=== PATIENT | male | born 1970 | race Caucasian/White ===

== ENCOUNTER 2023-11-30 10:00 | Day surgery (SDC) | payer MEDICAID, SELFPAY ==
--- NOTE | 2023-11-30 13:03 | EKG12_ITS ---
Test Reason : PREOP Blood Pressure : / mmHG Vent. Rate : 072 BPM Atrial Rate : 072 BPM P-R Int : 140 ms QRS Dur : 100 ms QT Int : 404 ms P-R-T Axes : 015 056 048 degrees QTc Int : 442 ms Normal sinus rhythm Normal ECG Confirmed by Nahun Maloney ([id number]), online editor ROXANA GOODWIN ([id number]) on 12/01/2023 8:53:40 AM Referred By: Navdeep Rubin Confirmed By:Nahun Maloney
[2023-11-30 13:46] LABS: Absolute Lymphocyte Count 1.25 X10^3/uL (0.83-4.51); Basophil# 0.04 X10^3/uL; Basophil% 0.5 % (0-1); Eosinophil# 0.02 X10^3/uL; Eosinophils% 0.2 % (0-5); Hematocrit 43.3 % (40-54); Hemoglobin 15.4 g/dL (13.0-16.5); Lymphocyte # 1.25 X10^3/ul (0.83-4.51); Lymphocyte % 15.5 % (19-41); Mean Corp Hgb Conc 35.6 g/dL (32-36); Mean Corpuscular Volume 89.8 fL (80-94); Mean Platelet Vol. 9.2 fl (6.2-12.0); Monocyte# 0.68 X10^3/uL; Monocyte% 8.4 % (0-10); NRBC Flagged by Analyzer 0 % (0-5); Neutrophil # 6.01 X10^3/uL (2.7-7.7); Neutrophil % 74.8 % (47-70); Platelet Count 267 K/mm3 (150-450); RBC Distribution Width CV 12.3 % (11.6-14.6); RBC Distribution Width SD 40.7 fl (35.1-43.9); Red Blood Count 4.82 M/mm3 (4.6-6.2); White Blood Count 8.1 K/mm3 (4.4-11.0)
[2023-11-30 14:12] LABS: Anion Gap 7 (5-15); BUN 7 mg/dL (7-18); Calcium,Total 8.9 mg/dL (8.5-10.1); Chloride 88 mmol/L (98-107); Creatinine, Serum 0.88 mg/dL (0.70-1.30); EST Glomerular Filtration Rate 96 mL/min (>60); Est Glom Filt Rate - Afr Amer 117 mL/min (>60); Glucose 108 mg/dL (74-106); Magnesium 2.5 mg/dL (1.6-2.6); Potassium 3.9 mmol/L (3.5-5.1); Sodium Level 124 mmol/L (136-145)
[2023-11-30 15:01] LABS: HIV - WCH Non-Reactive (Nonreactive); Hepatitis B Surface Antibody Reactive; Hepatitis C Antibody Non-Reactive (Nonreactive)
[2023-12-02 05:07] LABS: Hepatitis A AB, Total Negative (Negative)
== END 2023-11-30 23:59 | disposition home or self-care (01) ==
LOC: PAT 06-01 10:48
PROVIDERS: PCP Internal Medicine; Referring Provider Orthopaedic Surgery Orthopaedic Surgery of the Spine; Visit Provider Orthopaedic Surgery Orthopaedic Surgery of the Spine
DX: Z01.818 Encounter for other preprocedural examination (principal)
CPT/HCPCS: J3475 ×2; 36415; 80048; 83735; 85025; 86703; 86706; 86708; 86803; 87081; 93005

== ENCOUNTER 2024-01-24 16:21 | Observation (INO) | payer MEDICAID, SELFPAY ==
[2024-01-24] VITALS (16 sets, daily range): BP systolic 143–170; BP diastolic 98–116; PULSE 61–101; RESP 16; TEMP 36.1–37.2; O2SAT 93–100; BMI 25.4
[2024-01-24] MEDS: dexAMETHasone 10 MG/ML Vial 8 MG IV (12:00)
[2024-01-24] MEDS: Lactated Ringers 1,000 ML 15 ML IV (12:20)
[2024-01-24] MEDS: Acetaminophen 500 MG Tablet 1000 MG PO ×2 (12:22→20:26)
[2024-01-24] MEDS: Magnesium 1 GM over 15 mins IV (12:44)
[2024-01-24 12:48] LABS: Bedside Glucose 87 mg/dL (74-106)
--- NOTE | 2024-01-24 13:19 | PCM.PRE.AN2 ---
ASA Classification* ASA Classification ASA Classification: 3 Assessment & Plan Anesthesia* Anesthesia Assessment Anesthesia Assessment: Discussed sedation and/or anesthesia options, risks, benefits, and alternatives with patient/parents/legal guardian/POA. Questions invited. The patient/parents/legal guardian/POA seems to understand and agrees to proceed with anesthesia plan. Reviewed the physical assessment, medical history, allergy history and patient home medications list prior to surgery/procedure/anesthetic and documented any changes. Performed airway and anesthesia risk assessments. Anesthesia Type Anesthesia Type: General (Considering poor neck extension, would consider GlideScope intubation) History Source History Obtained from:: Patient and Chart Anesthesia Focused Assessment* Temperature: 99 F Pulse Rate: 88 Blood Pressure: 155/98 Respiratory Rate: 16 Pulse Ox: 99 Oxygen Delivery Method: Room Air Airway Assessment Mouth opens: >3 cm Mallampati Score: III Teeth Condition: Intact Neck Range of motion (ROM): Limited ROM (Decreased extension.) Focused Labs Anesthesia Preop lab: CBC WBC 8.1 K/mm3 (4.4-11.0) 11/30/23 13:22 RBC 4.82 M/mm3 (4.6-6.2) 11/30/23 13:22 Hgb 15.4 g/dL (13.0-16.5) 11/30/23 13:22 Hct 43.3 % (40-54) 11/30/23 13:22 Plt Count 267 K/mm3 (150-450) 11/30/23 13:22 CHEMISTRY Potassium 3.9 mmol/L (3.5-5.1) 11/30/23 13:22 Sodium 124 mmol/L (136-145) L 11/30/23 13:22 Magnesium 2.5 mg/dL (1.6-2.6) 11/30/23 13:22 BUN 7 mg/dL (7-18) 11/30/23 13:22 Creatinine 0.88 mg/dL (0.70-1.30) 11/30/23 13:22 Glucose 108 mg/dL (74-106) H 11/30/23 13:22 POC Glucose 87 mg/dL (74-106) 01/24/24 11:58 COAG Lab additional comments: January 20, 2024. Repeat sodium was 133. 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 When Was Last Pacemaker Check QUESTION #4 FULL TEXT: You/Your Family Experience fever (hyperthermia) with Anesthesia Last Oral Intake Last Oral intake: Last Oral Intake NPO since 22:00 01/24/24 11:52 Meds taken in AM with sips of Yes 01/24/24 11:52 water? Meds patient instructed to take am of surgery Any additional information?: Yes NPO since: 10:00 Meds patient instructed to take am of surgery: Presurgical anterior taken at 10:00. PONV PONV - hydrographic surveyor: PONV - hydrographic surveyor Female No 01/06/24 12:16 HX of Motion Sickness No 01/06/24 12:16 HX of N/V After Surgery No 01/06/24 12:16 Non-Smoker Yes 01/06/24 12:16 Duration of Surgery greater No 01/06/24 12:16 than 60 minutes Number of Risk Factors 1 01/06/24 12:16 PONV Score Low Risk 01/06/24 12:16 Height & Weight Height & Weight: Anesthesia: Height & Weight Height 5 ft 11 in 01/24/24 11:52 Weight: 83 kg 01/24/24 11:52 Body Mass Index (BMI) 25.4 01/24/24 11:52 Respiratory Assessment Respiratory Assessment - hydrographic surveyor: Respiratory Tract Infection Hx - hydrographic surveyor Hx Respiratory Tract Infection No 01/06/24 12:16 STOP Sleep Apnea STOP Sleep Apnea - hydrographic surveyor: STOP Sleep Apnea - hydrographic surveyor Hx Hypertension Yes: CONTROLLED WITH MEDS 01/06/24 12:16 Hx Sleep Apnea Yes 01/06/24 12:16 CPAP Yes: DOESN'T WEAR, SENT 01/06/24 12:16 MACHINE BACK COULDNT TOLERATE BIPAP No 01/06/24 12:16 Do you snore loudly (louder than talking or can be heard Do you often feel tired/ fatigued/ sleepy during daytime? Has anyone observed you stop breathing during sleep? STOP Results Positive 01/06/24 12:16 QUESTION #5 FULL TEXT : Do you snore loudly (louder than talking or can be heard through closed doors)? 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 Specify any problems Hx of Preganancy in last 3 N/A 01/06/24 12:16 Months Nurse Filling Out Transfusion [email or web address] 01/06/24 12:16 & Questions: Date: 01/06/24 01/06/24 12:16 Time: 12:18 01/06/24 12:16 Patient unable to answer at this time (ie. confused, unrespo /Reproduction History /Reproductive History - hydrographic surveyor: /Reproductive Hx- hydrographic surveyor Hx Now Gestational Age (in weeks): EDC: Hx Hx Para Hx Section SAB Active Medications Active Medications: Current Medications Generic Name Dose Route Start Last Admin Trade Name Freq PRN Reason Stop Dose Admin Cefazolin Sodium 2 gm/ Sodium 110 mls @ 150 mls/hr 01/24/24 13:15 Chloride IV 01/24/24 13:58 PREOP ONE Lactated Ringer's 1,000 mls @ 15 mls/hr 01/24/24 11:15 01/24/24 12:20 IV 15 mls/hr .Q48H MICHAEL Administration Insulin Human Lispro 1 - 6 unit 01/24/24 13:15 Insulin Lispro 100 Unit/Ml Insuln.Pen SC 01/24/24 18:00 Q4H PRN PRN BG>/= 180, SEE PROTOCOL Protocol PFSH Medical History Wears glasses Alcohol use Injury of head and neck Gastric reflux Marijuana use Former smoker CPAP (continuous positive airway pressure) dependence Sleep apnea History of stress test Home Medications ?Medication ?Instructions ?Recorded ?Last Taken ?Type fluticasone propionate 50 1 spray intranasal DAILY 10/26/23 Unknown History mcg/actuation nasal spray,suspension hydrocodone 5 mg-acetaminophen 300 1 tab PO BID PRN pain 10/26/23 Unknown History mg tablet losartan 50 mg tablet 50 mg PO DAILY 10/26/23 01/24/24 History omeprazole 40 mg capsule,delayed 40 mg PO DAILY 10/26/23 Unknown History release furosemide 20 mg tablet 20 mg PO BID 01/06/24 Unknown History sildenafil 50 mg tablet 50 mg PO DAILY 01/06/24 Unknown History sodium chloride 1,000 mg soluble 1,000 mg PO BID 01/06/24 Unknown History tablet Allergy/AdvReac Type Severity Reaction Status Date / Time No Known Allergies Allergy Verified 01/24/24 11:51 Family History Other Cancer Heart disease Hypertension Surgical History History of hernia surgery Social History household members: significant other Smoking Status: Former smoker alcohol intake: current alcohol intake frequency: holidays/special occasions only substance use type: marijuana Review of Systems (Anesthesia) ROS Narrative System reviewed and no additional complaints, except as documented.
--- NOTE | 2024-01-24 13:21 | HP.PCM_ITS ---
History and Physical Date of Admission: 01/24/24 MR#: [id number] Acct: [id number] Name: RYAN PATIÑO Rep #: [id number] : 1970 Provider: Dr. Navdeep Rubin MD Age/Sex: 53/M Location: [facility] [place] Status: Signed Intake Vital Signs 10/25/2412:54 Height 5 ft 11 in Intake Visit Reasons: cervical spine Is patient in pain?: Yes Allergies No Known Allergies Allergy (Unverified 12/09/23 13:38) Medications ?Medication ?Instructions ?Recorded ?Confirmed ?Type fluticasone propionate 50 1 spray intranasal DAILY 10/26/23 12/09/23 History mcg/actuation nasal spray,suspension hydrochlorothiazide 50 mg tablet 50 mg PO DAILY 10/26/23 12/09/23 History hydrocodone 5 mg-acetaminophen 300 1 tab PO BID PRN pain 10/26/23 12/09/23 History mg tablet losartan 50 mg tablet 50 mg PO DAILY 10/26/23 12/09/23 History omeprazole 40 mg capsule,delayed 40 mg PO DAILY 10/26/23 12/09/23 History release PFSH Medical History Wears glasses Alcohol use Injury of head and neck Gastric reflux Marijuana use Former smoker CPAP (continuous positive airway pressure) dependence Sleep apnea History of stress test Surgical History History of hernia surgery Family History Other Cancer Heart disease Hypertension Social History household members: significant other Smoking Status: Former smoker alcohol intake: current alcohol intake frequency: holidays/special occasions only substance use type: marijuana HPI cervical spine Details: This documentation accurately reflects the service provided and the decisions made by me, Dr. Navdeep Rubin MD 12/09/23 [id number]. Part of today?s visit was documented by [ ], acting as scribe. RYAN PATIÑO is a 53 year old M here today for preop, cervical spine, dos 12/14/23. Patient denies any changes. Patient states that he got his blood work from [facility] and his sodium is low so he has to try and get that elevated and goes for repeat blood work on Wednesday. Ryan continues to have neck pain radiating to right worse than left upper extremities with dexterity and balance issues. Following his his previous history: 10/29/23: RYAN PATIÑO is a 53 year old M here today for evaluation of cervical spine pain as a referral from Dr. Leonardo. He reports neck pain for years. He reports stiffness in his neck and feels as though something is pushing his neck forward. The pain radiates down his neck into his right shoulder blade down into right arm. He does report numbness into the right arm. Ryan has been referred by Dr. Leonardo. He has had neck pain for many years. Over the last 3 to 4 months this is significantly worsened such that now the pain is radiating signif icantly over the right upper extremity and has caused weakness in the arm and hand on the right side. Patient is right-hand dominant. He notices difficulty with dexterity and dropping objects in his right hand. He denies any left-sided symptoms. He has noticed some early balance difficulties but denies any falls. He also notes axial low back pain without radicular symptoms. Ortho Exam General General: Yes no acute distress Neurologic: Yes alert and Yes oriented x3 Spine SPINE TESTING CERVICAL THORACIC LUMBAR Musculoskeletal Strength 0=absent - 5=normal Details: Examination of the neck shows midline and right paraspinal tenderness. Neurologic evaluation of upper extremity shows 4+ x 5 power in right upper extremity, 5/5 in the left, shows normal sensations in all dermatomes. Felicitas's negative. Romberg's is positive. Tandem gait shows imbalance. Bilateral knee and right ankle reflexes brisk. No ankle clonus. Coding Level of Care Code Off vis,est,level 4 Diagnoses Cervical myelopathy with cervical radiculopathy G95.9; M54.12 Time Spent (min) 35 Comment Modifier 57 Assessment and Plan Assessment and Plan (1) Cervical myelopathy with cervical radiculopathy: Status: Acute Plan I again reviewed his x-rays and MRI. These show C5-7 disc degeneration with disc height loss with severe osteophytosis causing severe foraminal stenosis. There is mild central stenosis with cord indentation with heterogeneous signal changes with severe foraminal stenosis. I explained to him the imaging findings in detail. Clinically, patient has shown signs of early myelopathy along with severe right upper extremity radiculopathy with weakness. I explained to him the natural history of cervical myelopathy as well as that of radiculopathy. While radiculopathy may improve with nonsurgical treatment, myelopathy typically has a natural history of progression. Patient has shown significant worsening of his hand dexterity and balance issues over the last few months. I recommended surgery in the form of C5-7 ACDF. All risk benefits and alternatives were discussed in detail. The risks include but are not limited to infection, bleeding, hematoma formation, need for further surgery, dysphagia, dysphonia, Sheryl syndrome, recurrent laryngeal nerve injury, pseudoarthrosis, hardware failure, adjacent segment degeneration, DVT, pulmonary embolism, pneumonia, atelectasis, cardiopulmonary event. Patient understands and agrees to proceed with surgery. Consent was signed.
--- NOTE | 2024-01-24 13:40 | RAD_ITS ---
INDICATION: ANTERIOR FUSION C5-6, C6-7 EXAMINATION/TECHNIQUE: X-RAY - XR Spine Cervical 4 or 5 Views COMPARISON: Prior study dated: 10/29/2023 FINDINGS: Images of the cervical spine were obtained intraoperatively on a C-arm for anterior fusion of C5, C6 and C7 with anterior plate and screws. Images were obtained for documentation. Number of fluoroscopic images 7. Fluoroscopy time: 16.1 seconds. Radiation dose: 3.41 mGy. RAD/Cerv Spine 4 or 5 Views IMPRESSION: Intraoperative exam as described above.. Electronically Signed: Jasmeet Baldwin MD at 9:38 EDT ,
[2024-01-24] MEDS: Cefazolin 2 GM in 0.9% Normal Saline (100mL Bag) 100 ML IV ×2 (14:00→22:37)
--- NOTE | 2024-01-24 16:28 | OP.PCM_ITS ---
Report of Operation Date of Procedure: 01/24/24 Description of Surgical Findings:: Preoperative diagnosis: C5-7 disc degeneration with stenosis, radiculomyelopathy Postoperative diagnosis: Same Name of procedure: C5-7 anterior cervical discectomy and fusion with plate instrumentation - Anterior cervical fusion C5-6, CPT code 42266 - Anterior plate instrumentation C5-7, CPT code 86396/59 - Anterior cervical fusion C6-7, CPT code 88412/51 -C5-6 structural allograft bone with DBX, CPT code 41712 -C6-7 structural allograft bone with DBX, CPT code 85660 Attending surgeon: Navdeep Rubin M.D. Anesthesia: Gen. endotracheal Estimated blood loss: 25 mL Complications: None Instrumentation used: Medtronic [place] Elite plate, LASR corticocancellous block Indications: The patient is a pleasant 53-year-old gentleman who presented with neck pain, right worse than left upper extremity radiation, difficulty with dexterity and balance. MRI showed C5-7 disc degeneration with stenosis with cord indentation without any cord signal changes. In order to halt the progression of myelopathy, the patient requested surgical treatment. All risks and benefits of the procedure were explained to the patient. The risks include but are not limited to infection, bleeding, injury to nerves and vessels, vertebral artery injury, spinal cord injury, paralysis, vocal cord paralysis, injury to esophagus, pseudoarthrosis, need for further procedures, adjacent segment degeneration. Procedure: The patient was identified in the preoperative suite using unique patient identifiers. Skin was marked consent was taken and all questions were answered. The patient was then brought back to the operative room and a timeout was performed. General endotracheal anesthesia was given. Intraoperative neuro monitoring leads were applied. The patient was carefully positioned supine on a regular OR table. A lateral view with a C-arm was done to identify the level and to define the incision. The anterior neck was then prepped and draped in the usual fashion. A final timeout was then performed. A transverse skin incision was taken to the left of midline. Subcutaneous tissue was then divided with Bovie. Platysma was identified and cut along the incision with scissors. The fascial interval between the sternocleidomastoid and the larynx was developed. Omohyoid was identified and retracted. The esophagus with the larynx was retracted medially to reach the prevertebral fascia. Marker x-ray was performed with bent spinal needle and disc space and levels were confirmed. Longus coli muscle was elevated on both sides at and above and below C5-7 discs. Self-retaining retractors were then placed. A long handle knife was then used to perform annulotomy at C5-6. Disc fragments were removed with the pituitary. [place] pins were placed in C5 and C6 for disc distraction. Curettes and bur was utilized to remove cartilage from the endplates. Discectomy was performed laterally up to the uncovertebral joints. Posterior osteophytes were thinned down with the bur and adequate decompression in the central and foraminal areas were performed and PLL was thinned out. Once the disc space was prepared, trials of various sizes were utilized. Thorough irrigation was given. 6 mm LASR cortical cancellous allograft bone large footprint was then fashioned in such a way that concavities were burred out inferiorly and superiorly and half cc of DBX (demineralized bone matrix) was squeezed into the cancellous portion. The graft was then inserted into the C5-6 disc space. The retractors were then repositioned and the procedure was repeated for C6-7 discs with complete discectomy. Graft size was 6 mm at with large footprint at C6-7. The grafts were found to be in good apposition with good pullout strength. A 40 mm Medtronic [place] Elite plate was then fixed to C5-7 with 16 mm screws. A lateral x-ray was then taken to check the length of the screws. Both AP and lateral x-rays showed good positioning of plate and screws. The locking mechanism over the screw heads was then turned. Thorough irrigation was again given. Hemostasis was achieved. A Meg drain was then inserted. Closure was done with 3-0 Vicryl for the platysma and subcutaneous tissue layers and 4-0 Monocryl for the skin. Closure was done around the drain. Steri-Strips were applied and dressing was done with 4 x 4 gauze and Tegaderm. A cervical collar was then applied. The patient was then woken up from anesthesia extubated and taken to PACU in stable condition. From here, the patient will be transitioned to the floor. Intraoperative neuro monitoring was performed throughout this procedure. Motor evoked potentials were run periodically. All potentials remained at baseline throughout the procedure. I was present for the entire surgery and performed the surgery myself. Surgeon: Rubin,Navdeep Admit VTE Documentation VTE Mechan Device Prophylaxis: SCD's Procedures Musculoskeletal [id number]: Other Procedure See Report
--- NOTE | 2024-01-24 16:53 | PCM.POST.ANE ---
Anesthesia: Postop Eval I Current Vital Signs Temperature: 97.2 F Pulse Rate: 90 Blood Pressure: 143/102 Respiratory Rate: 16 Pulse Ox: 98 Oxygen Delivery Method: Simple Mask Oxygen Flow Rate (L/min): 6 Assessment Airway patent: Yes Spontaneous unlabored respirations: Yes Mental status: Asleep nausea: No Vomiting: No Anesthesia Complication: No Fluid Hydration Crystalloid volume administer (ml): 1,700 Total IV fluid infused: 1,700 Progress Note Post-operative progress note: oral airway in place; breathing spontaneously Anesthesia document: Postop Eval 1 completed: Yes
[2024-01-24] MEDS: dexAMETHasone 4 MG/ML Vial IV ×2 (18:22→23:08)
[2024-01-24] MEDS: Lactated Ringers 1,000 ML 100 ML IV (18:22)
[2024-01-24] MEDS: Methocarbamol 500 MG Tablet 1000 MG PO ×2 (18:22→22:38)
[2024-01-24] MEDS: oxyCODONE 5 MG Tablet PO (20:26)
--- NOTE | 2024-01-24 20:55 | PCM.PN.HOSP ---
Reason for Visit Reason for Visit: Neck pain Subjective Subjective Mr. Jha is a 53-year-old white male who presented electively for an anterior cervical discectomy and fusion with plate instrumentation due to C5-C7's degeneration and stenosis and radiculomyelopathy on 01/24/2024. Procedure was done by Dr. Rubin. He has a past medical history of tobacco abuse, alcohol abuse both of which are in remission, GERD, marijuana use, SEBASTIEN and hypertension. We have been consulted postoperatively for medical management. Objective Data Objective Data Vital Signs: Vital Signs Temp Pulse Resp BP Pulse Ox O2 Del Method O2 Flow Rate 97.2 F L 87 16 153/109 H 94 Room Air 2 01/24/24 20:35 01/24/24 20:35 01/24/24 20:35 01/24/24 20:35 01/24/24 20:35 01/24/24 20:35 01/24/24 20:03 Oxygen Flow Rate (L/min) 2 Oxygen Delivery Method Room Air Weight: 83 kg Body Mass Index (BMI) 25.4 Intake & Output: Intake and Output for Last 24 Hours 01/22/24 01/23/24 01/24/24 23:59 23:59 23:59 Intake Total 212 / 212 Balance 212 / 212 Lab / Micro Data Labs: Laboratory Results - last 24 hr 01/24/24 11:58: POC Glucose 87 01/24/24 12:25: Blood Type A POSITIVE, Antibody Screen NEGATIVE Physical Exam Const alert, oriented x3, no apparent distress, average body habitus, healthy appearing and well nourished Constitutional Narrative: Middle-aged, white male, sitting up in a chair at the bedside, watching television, cervical collar in place, appears comfortable and nontoxic HEENT head/scalp atraumatic and moist oral mucous membranes Head and Scalp: normocephalic Resp normal respiratory effort, no retractions, no use of accessory muscles and clear to auscultation bilaterally Auscultation: Negative for rales, rhonchi or wheezes Cardio regular rate, regular rhythm, S1 normal heart sound, S2 normal heart sound, no murmurs, no rub, no gallops and no clicks GI normal to inspection, nondistended, normoactive bowel sounds, soft to palpation and non-tender Extremity no clubbing, cyanosis or edema Extremity Narrative: Pedal pulses are 2+ yeah and I still have 4 notes to go Neuro oriented x3, moves all extremities and no focal motor deficits Psych affect normal Psych Narrative: Pleasant interacts appropriately Assessment & Plan Assessment/Plan (1) Cervical myelopathy with cervical radiculopathy: PLAN: Plan Neck pain secondary to C5-C7 degeneration with stenosis and radiculomyelopathy -Postop day 0 ACDF with plate instrumentation -Management per primary service -Continue bowel regimen GERD -continue home PPI Hyponatremia -Patient does follow outpatient with nephrology -Hydrochlorothiazide was supposed to be discontinued -Continue sodium next-continue Lasix -Continue fluid restriction and most recent sodium has been above 130 per documentation from -Ongoing outpatient follow-up as recommended previously Hypertension -Continue home losartan Erectile dysfunction -Restart sildenafil at discharge History of tobacco abuse -Recommend ongoing cessation History of alcohol abuse -Recommend ongoing cessation DVT prophylaxis -Per primary service Charges/Coding Visit Charges Inpatient E&M: 17735 Subs Hosp L2
[2024-01-24] MEDS: Sodium Chloride 1 GM Tablet PO (22:37)
[2024-01-24] MEDS: Senna/Docusate Sodium 1 Tablet 2 TABLET PO (22:37)
[2024-01-24] MEDS: Furosemide 20 MG Tablet PO (22:37)
[2024-01-24] MEDS: Ketorolac 15 MG/ML Vial IV (23:08)
[2024-01-25 02:29] VITALS: BP 174/115; PULSE 82; RESP 16; TEMP 36.4; O2SAT 95
[2024-01-25] MEDS: Losartan Potassium 50 MG Tablet PO ×2 (02:33→13:21)
[2024-01-25] MEDS: oxyCODONE 5 MG Tablet PO ×2 (02:43→10:53)
[2024-01-25] MEDS: dexAMETHasone 4 MG/ML Vial 2 MG IV ×2 (05:19→12:02)
[2024-01-25] MEDS: Cefazolin 2 GM in 0.9% Normal Saline (100mL Bag) 100 ML IV (05:19)
[2024-01-25] MEDS: Acetaminophen 500 MG Tablet 1000 MG PO (05:20)
[2024-01-25 05:23] VITALS: BP 168/109; PULSE 82
[2024-01-25 06:16] VITALS: PULSE 82
[2024-01-25] MEDS: hydrALAZINE 20 MG/ML Vial 10 MG IV (06:16)
[2024-01-25] MEDS: 0.9% Saline Lock 10 ML Syringe IV ×3 (06:16→12:02)
[2024-01-25 06:46] VITALS: BP 164/97; PULSE 97; RESP 16; TEMP 36.4; O2SAT 94
[2024-01-25 07:59] LABS: Hematocrit 41.1 % (40-54); Hemoglobin 14.7 g/dL (13.0-16.5); Mean Corp Hgb Conc 35.8 g/dL (32-36); Mean Corpuscular Hgb 32.4 pg (27.0-32.0); Mean Corpuscular Volume 90.5 fL (80-94); Mean Platelet Vol. 9.5 fl (6.2-12.0); Platelet Count 281 K/mm3 (150-450); RBC Distribution Width CV 12.1 % (11.6-14.6); RBC Distribution Width SD 39.9 fl (35.1-43.9); Red Blood Count 4.54 M/mm3 (4.6-6.2); White Blood Count 11.8 K/mm3 (4.4-11.0)
--- NOTE | 2024-01-25 08:07 | POSTOPAN2_ITS ---
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.MACIEOBFrancis Anesthesia Postop Eval I: Fluid Summary Crystalloid volume administer 1,700 01/24/24 16:54 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.MACIEOBY (ml) Colloids volume administered ( ml) Blood Product volume administered (ml) Total IV fluid infused 1,700 01/24/24 16:54 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
--- NOTE | 2024-01-25 08:07 | PCM.POSTANE2 ---
Anesthesia Postop Eval I Sum Postop Eval Completion status Anesthesia document: Postop Eval 1 completed: Yes Anesthesia Postop Eval I Summary Anesthesia Postop Eval I Summary: Anesthesia Postop Eval I: Assessment Summary Airway patent Yes 01/24/24 16:54 [employer].[email or web address] Spontaneous unlabored Yes 01/24/24 16:54 [employer].JORGE LUIS respirations Mental status Asleep 01/24/24 16:54 [employer].MACIEOBFrancis nausea No 01/24/24 16:54 [employer].MACIEOBFrancis Vomiting No 01/24/24 16:54 [employer].MACIEOBFrancis Anesthesia Postop Eval I: Fluid Summary Crystalloid volume administer 1,700 01/24/24 16:54 [employer].MACIEOBY (ml) Colloids volume administered ( ml) Blood Product volume administered (ml) Total IV fluid infused 1,700 01/24/24 16:54 [employer]ANT.MACIEOBFrancis Anesthesia Postop Eval I: Summary Notes Anesthesia Complication No 01/24/24 16:54 [employer].JORGE LUIS Anesthesia Complication Comment: Post-operative progress note oral airway in 01/24/24 16:54 [employer].JORGE LUIS place; breathing spontaneously Anesthesia: Postop Eval II Evaluation Mental status: Awake Pain Level: 0 nausea: No Vomiting: No Complications Anesthesia Complication: No
[2024-01-25 08:10] VITALS: BP 156/107; PULSE 89; RESP 18; TEMP 36.6; O2SAT 97
[2024-01-25] MEDS: Ensure Surgery 237 ML LIQUID PO (08:12)
[2024-01-25] MEDS: Sodium Chloride 1 GM Tablet PO (08:13)
[2024-01-25] MEDS: Ketorolac 15 MG/ML Vial IV (08:13)
[2024-01-25] MEDS: Senna/Docusate Sodium 1 Tablet 2 TABLET PO (08:13)
[2024-01-25] MEDS: Fluticasone 0.05% 1 SPRAY NASAL.SRY NASAL (08:13)
[2024-01-25] MEDS: Meloxicam 15 MG Tablet PO (08:14)
[2024-01-25] MEDS: Furosemide 20 MG Tablet PO (08:14)
[2024-01-25] MEDS: Pantoprazole Sodium 40 MG Tablet PO (08:14)
--- NOTE | 2024-01-25 09:19 | RAD_ITS ---
STUDY: X-RAY - CERVICAL SPINE REASON FOR EXAM: Male, 53 years old. S/p acdf -- Please do upright AP lateral TECHNIQUE: 2 view(s) of the cervical spine were obtained. COMPARISON: Comparison is made with prior study October 29, 2023. FINDINGS: Normal anterior atlantoaxial articulation. Normal odontoid process. Normal cervical lordosis. The patient is status post anterior fusion with screw and plate fixation at the C5-C6 and C6-C7 levels. Prosthetic discs are also seen. Normal disc space heights. Normal visualized intervertebral neuroforamina. The soft tissue structures are unremarkable. RAD/Cerv Spine 2 or 3 Views IMPRESSION: Status post anterior fusion and disc placement at the C5-C6 and C6-C7 levels. Electronically Signed: Russ Araya MD at 15:14 EDT ,
[2024-01-25 09:57] LABS: Anion Gap 8 (5-15); BUN 9 mg/dL (7-18); BUN/Creat Ratio 11.7 RATIO (10-20); Calcium,Total 8.6 mg/dL (8.5-10.1); Chloride 98 mmol/L (98-107); Creatinine, Serum 0.77 mg/dL (0.70-1.30); EST Glomerular Filtration Rate 112 mL/min (>60); Est Glom Filt Rate - Afr Amer 136 mL/min (>60); Estimated Creatinine Clearance 116.81 ml/min; Glucose 145 mg/dL (74-106); Potassium 3.8 mmol/L (3.5-5.1); Sodium Level 129 mmol/L (136-145)
--- NOTE | 2024-01-25 10:40 | CASEMGMT ---
BENJIE ALVAREZ Assessment: Face to Face with pt for initial transition planning/care coordination assessment. BENJIE ALVAREZ introduced self and role at [facility], pt voices understanding and consents to assessment. Pt is A&O x4 and answers all questions appropriately at this time. Pt sitting up in bed in no distress with neck brace on. Care providers, pharmacy, and demographics verified/updated. Admitting Dx: anterior cervical fusion C5-6 PCP:Theo Specialists:Rey, nephro; Scottie, ortho Preferred [facility]acy[facility] [place] Insurance: [employer] Prescription Benefit: yes LNOK: Donta Carey, [employer] Living Arrangements: Pt lives with life partner in a single story home with 2 steps to enter with a rail. Pt reports prior to surgery he is I in ADL's and denies concerns at home. Transportation: Pt drives self and denies concerns with transportation. Pt partner will transport him until he can drive again. DME:Denies HHC/SNF: Denies hx of Pt states no concerns with going home at time of dc. Pt has been up walking in the halls. Therapy to pb martin. Pt states no further concerns/needs. CM to follow. Advised pt to ask CM if any further question/concerns/needs arise, voices understanding. Pt Goal: Home Plan: Home pending therapy pb Freedman RN, CM
[2024-01-25] MEDS: Methocarbamol 500 MG Tablet 1000 MG PO (10:53)
--- NOTE | 2024-01-25 11:49 | PCM.PN.ORT ---
Subjective Subjective Postop day 1 status post C5-7 ACDF. Doing well. Pain well-controlled. Noticed dressings increased this morning. No change gauze dressing done by nursing overnight. Mentions improvement of radicular symptoms. Has been able to walk the hallways with nursing. Yet to see PT. Was able to tolerate soft diet without dysphagia. Struggled overnight with hypertension control. Objective Data Objective Data Vital Signs: Vital Signs Temp Pulse Resp BP Pulse Ox O2 Del Method O2 Flow Rate 97.8 F 89 18 156/107 H 97 Room Air 2 01/25/24 08:10 01/25/24 08:10 01/25/24 08:10 01/25/24 08:10 01/25/24 08:10 01/25/24 08:10 01/24/24 20:03 Oxygen Flow Rate (L/min) 2 Oxygen Delivery Method Room Air Weight: 182 lb 15.739 oz Body Mass Index (BMI) 25.4 Intake & Output: Intake and Output for Last 24 Hours 01/23/24 01/24/24 01/25/24 23:59 23:59 23:59 Intake Total 322 / 622 1897.58 / 1897.58 Balance 322 / 622 1897.58 / 1897.58 Lab / Micro Data 01/25/24 07:18 01/25/24 07:18 Labs: Laboratory Results - last 24 hr 01/24/24 11:58: POC Glucose 87 01/24/24 12:25: Blood Type A POSITIVE, Antibody Screen NEGATIVE 01/25/24 07:18: WBC 11.8 H, RBC 4.54 L, Hgb 14.7, Hct 41.1, MCV 90.5, MCH 32.4 H, MCHC 35.8, RDW Std Deviation 39.9, RDW Coeff of Robert 12.1, Plt Count 281, MPV 9.5, Sodium 129 L, Potassium 3.8, Chloride 98, Carbon Dioxide 23.0, Anion Gap 8, BUN 9, Creatinine 0.77, Estim Creat Clear Calc 116.81, Est GFR (MDRD) Af Amer 136, Est GFR (MDRD) Non-Af 112, BUN/Creatinine Ratio 11.7, Glucose 145 H, Calcium 8.6 Radiography Diagnostic Testing: Radiology Impression Cervical Spine X-Ray 01/24/24 13:40 IMPRESSION: Intraoperative exam as described above.. Electronically Signed: Jasmeet Baldwin MD at 9:38 EDT , Physical Exam Narrative Dressing?saturated. Dressing and Meg drain was removed. New dressing applied. Neurologic evaluation of upper extremity shows 5 x 5 power normal shows normal sensations in all dermatomes. Assessment & Plan Assessment/Plan (1) S/P cervical spinal fusion: PLAN: Plan Postop day 1 status post C5-7 ACDF. X-rays done. Reviewed. Harris drain removed. New dressing applied. Gauze shows saturation, okay to change dressing and gauze by nursing. Will review PT notes. Likely discharge home today pending PT clearance. Appreciate hospitalist comanagement for blood pressure and low sodium issues.
[2024-01-25 12:48] VITALS: BP 156/100; PULSE 92; RESP 18; TEMP 36.6; O2SAT 96
--- NOTE | 2024-01-25 13:42 | PHA.DC.MC.R ---
Pharmacy [facility] has performed discharge medication reconciliation and counseling for this patient. The patient's discharge medication list was reviewed for discrepancies and discrepancies were resolved. The patient was counseled on the following discharge medications and changes in medications for homegoing were reviewed. The Reason for Use, instructions for use, and potential side effects were reviewed for all new medications. The patient's questions regarding all of their medications were answered. 1. Acetaminophen 500 mg Q6H x 7 days 2. Meloxicam 15 mg PO daily 3. Oxycodone 2.5-5 mg PO Q6H PRN pain x 5 days 4. Senna/docusate 2 tablets PO BID PRN constipation 5. Methocarbamol 750 mg Po TID PRN spasms The patient was able to verbally demonstrate an understanding of their discharge medications. The patient was counselled on new medications by on call pharmacy technician Rikki. Medications at Discharge Home Medications fluticasone propionate 50 mcg/actuation nasal spray,suspension 1 spray intranasal DAILY 10/26/23 losartan 50 mg tablet 50 mg PO DAILY 10/26/23 omeprazole 40 mg capsule,delayed release 40 mg PO DAILY 10/26/23 furosemide 20 mg tablet 20 mg PO BID 01/06/24 sildenafil 50 mg tablet 50 mg PO DAILY 01/06/24 sodium chloride 1,000 mg soluble tablet 1,000 mg PO BID 01/06/24 acetaminophen 500 mg tablet 500 mg PO Q6H 7 days #28 tabs 01/25/24 meloxicam 15 mg tablet 15 mg PO DAILY 30 days #30 tabs 01/25/24 methocarbamol 500 mg tablet 750 mg (1.5 x 500 mg) PO TID PRN Pain/spasms 7 days #28 tabs 01/25/24 oxycodone 5 mg tablet 2.5 - 5 mg (0.5 - 1 x 5 mg) PO Q6H PRN pain 5 days #20 tabs 01/25/24 sennosides 8.6 mg-docusate sodium 50 mg tablet (Stimulant Laxative Plus) 2 tab PO BID PRN constipation 5 days #20 tabs 01/25/24
== END 2024-01-25 13:43 | disposition home or self-care (01) ==
LOC: SDC 16:37 → MS3 01-25 08:43
PROVIDERS: Admitting Provider Orthopaedic Surgery Orthopaedic Surgery of the Spine; PCP Internal Medicine; Referring Provider Orthopaedic Surgery Orthopaedic Surgery of the Spine; Visit Provider Orthopaedic Surgery Orthopaedic Surgery of the Spine
PROC: (CPT 22551; principal; 2024-01-24 12:45)
DX: M48.02 Spinal stenosis, cervical region (principal); G99.2 Myelopathy in diseases classified elsewhere; E87.1 Hypo-osmolality and hyponatremia; Z87.891 Personal history of nicotine dependence; M50.020 Cervical disc disorder with myelopathy, mid-cervical region, unspecified level; I10 Essential (primary) hypertension; K21.9 Gastro-esophageal reflux disease without esophagitis; M54.12 Radiculopathy, cervical region
CPT/HCPCS: 22551; 22552; 22845; 20931; 00670; J2405; 36415; 72040; 72050; 76000; 80048; 82962; 85027; 86850; 86900; 86901; 94668; 96361; 96365; 96366; 96375; 96376; 99221; A4648; C1713; J7120; A4216; G0378; J3475

== ENCOUNTER → 2024-08-13 | Outpatient (CLI) | payer MEDICAID, SELFPAY ==
--- NOTE | 2024-08-13 11:09 | MRI_ITS ---
PROCEDURE: SPINE CERVICAL (ROUTINE) REASON FOR EXAM: Neck and arm pain with numbness and tingling. Prior neck surgery. TECHNIQUE: Multiplanar, multisequence MRI of the cervical spine is performed without intravenous contrast. COMPARISON: Cervical spine radiograph from 05/05/2024. FINDINGS: There is anterior cervical spinal fusion from C5-C7 with anterior cervical spinal fusion plate and screws with associated susceptibility artifact. There is mild disc space narrowing at C7-T1. No acute fracture or subluxation is present. Cervical spinal cord demonstrates a normal signal intensity and morphology. Cerebellar tonsils are within normal range. C2-3: No disc herniation, central canal stenosis, or neural foraminal narrowing. C3-4: Mild disc osteophyte complex with no significant central canal stenosis. Mild facet/uncovertebral changes are present with mild to moderate right and mild left neural foraminal narrowing. C4-5: Mild disc osteophyte complex with no significant central canal stenosis. Mild facet/uncovertebral changes are present with moderate bilateral neural foraminal narrowing. C5-6: Postsurgical changes with susceptibility artifact. No significant central canal stenosis. Mild facet/uncovertebral changes are present with moderate bilateral neural foraminal narrowing. C6-7: Postsurgical changes with susceptibility artifact. Mild disc osteophyte complex with no significant central canal stenosis. Facet/uncovertebral changes are present with severe bilateral neural foraminal narrowing. C7-T1: Disc osteophyte complex with no significant central canal stenosis or right neural foraminal narrowing. Facet/uncovertebral changes are present with moderate left neural foraminal narrowing. MRI/Spine Cervical (Routine) IMPRESSION: 1. Anterior cervical spinal fusion from C5-C7 with susceptibility artifact. No significant central canal stenosis is present at the levels. However there is bilateral neural foraminal narrowing as above. 2. Multilevel degenerative disc disease and spondylosis with no significant vin tral canal stenosis. Multilevel varying degrees of neural foraminal narrowing are identified as above. 3. No abnormal cord signal. Reading Location: [facility]
== END | disposition home or self-care (01) ==
LOC: MRI 08-14 10:45
PROVIDERS: PCP Internal Medicine; Referring Provider Student in an Organized Health Care Education/Training Program; Visit Provider Student in an Organized Health Care Education/Training Program
DX: M54.2 Cervicalgia (principal); Z98.1 Arthrodesis status
CPT/HCPCS: 72141